=== PATIENT | female | born 1965 | race African-American/Black ===

== ENCOUNTER 2017-06-07 16:41 | Emergency (ER) | payer OTHER ==
[~2017-06-07] VITALS: Ht 172.7 cm; Wt 81.7 kg
[~2017-06-07 16:41] MED LIST: ACETAMINOPHEN-1 EAC1 PO; AMOXICILLIN500 M1 PO; BACTRIM DS TAB1 EACH PO; CHERATUSSIN DA480 ML PO; DAYPRO600 MG PO; FLEXERIL PO; HYDROCODON-ACE1 EAC7 PO; HYDROCODON-ACE1 EACH PO; HYDROCODONE-AP1 EAC6 PO; IBUPROFEN 800800 M1 PO; KEFLEX500 MG PO; NAPROSYN500 MG PO; NEURONTIN 300M300 M2 PO; NEURONTIN300 MG PO; NOHOMEMEDICATIONS; NORCO 5-325 TA1 EACH PO; PENICILLIN V P500 MG PO; PENICILLIN VK250 MG PO; PENICILLIN VK500 M1 PO; ROBAXIN 750 MG750 M1 PO
[2017-06-07] MEDS ORDERED: GABAPENTIN600 M1 PO (17:02)
[2017-06-07] MEDS ORDERED: LISINOPRIL20 MG PO (17:02)
[2017-06-07] MEDS ORDERED: PHENERGAN 25 MG25 M1 PO (17:10)
[2017-06-07 17:26] VITALS: BP 174/91
== END 2017-06-07 17:27 | disposition home or self-care (01) ==
LOC: M.ERS 16:41
DX: B34.9 Viral infection, unspecified (principal)

== ENCOUNTER 2019-06-23 15:19 | Emergency (ER) | payer OTHER ==
[~2019-06-23] VITALS: Ht 160 cm; Wt 67.1 kg
[~2019-06-23 15:19] MED LIST changes: +GABAPENTIN600 M1 PO; +LISINOPRIL20 MG PO; +PHENERGAN 25 MG25 M1 PO
[2019-06-23] MEDS ORDERED: KEFLEX500 M1 PO (16:28)
[2019-06-23 17:07] VITALS: BP 166/100
== END 2019-06-23 17:07 | disposition home or self-care (01) ==
LOC: M.ERS 15:19
DX: K02.9 Dental caries, unspecified (principal); R03.0 Elevated blood-pressure reading, without diagnosis of hypertension; F17.210 Nicotine dependence, cigarettes, uncomplicated; Z98.51 Tubal ligation status; Z90.711 Acquired absence of uterus with remaining cervical stump